=== PATIENT | female | born 1940 | race Caucasian/White ===

== ENCOUNTER → 2017-07-05 | Outpatient (CLI) | payer OTHER ==
[~2017-07-05] VITALS: Ht 157.5 cm; Wt 52.6 kg
[~2017-07-05] MED LIST: ALENDRONATE SOD70 MG PO; AMLODIPINE BESY10 MG PO; ATIVAN0.5 MG PO; CALCIUM 600 +1 EAC3 PO; CENTRUM SILVER1 EAC4 PO; ENALAPRIL-HCTZ1 EACH PO; PRAVASTATIN SOD80 MG PO; TRAZODONE HCL50 MG PO
--- NOTE | ~2017-07-05 | P ---
[facility] [place] [address] PROCEDURE REPORT Name: FLORENCIA HEATH Room #: REG [facility]#: [id number] Admission: 07/05/17 Attend Phys: Chase Travis MD Discharge: Date of : 40 Report #: [id number] THIS REPORT FOR: //name// CC: Chase Quiroz MD BRIEF HISTORY: The patient is a 77-year-old woman for average risk screening colonoscopy. PREOPERATIVE DIAGNOSIS: Average risk screening colonoscopy. POSTOPERATIVE DIAGNOSES: 1. Normal average risk screening colonoscopy. 2. Moderate sigmoid diverticulosis coli. 3. Small internal hemorrhoids. MEDICATIONS: Deep sedation with propofol per anesthesia. SPECIMEN: None. ESTIMATED BLOOD LOSS: None. PROCEDURE: Colonoscopy to cecum and terminal ileum. FINDINGS: Prior to propofol sedation, the procedure of colonoscopy was discussed with the patient as well as potential risks, benefits, and complications. She indicates she understands and desires to proceed. With the patient in left lateral decubitus position, digital examination was completed, which revealed no abnormalities. Subsequently, the [employer] video colonoscope was introduced into the rectum and advanced under direct vision to the cecum. Done with minimal difficulty. The cecum was identified by the ileocecal valve and the appendiceal orifice. I was able to visualize the distal segment of terminal ileum, which was inspected and noted to be unremarkable. At that point, scope was slowly withdrawn and careful circumferential views obtained including retroflexion of the scope in the ascending colon. As we withdrew the scope, the prep was noted to be excellent. Mucosa was within normal limits, normal vascular pattern, and normal light reflex. As we withdrew the scope, no mucosal abnormalities were seen. No neoplastic lesions were seen on this examination. In the sigmoid colon, there was noted to be moderate diverticular disease without endoscopic evidence of diverticulitis. The scope was withdrawn in the rectum. No mucosal abnormalities were seen. Upon retroflexion, very small hemorrhoids were seen. Scope was withdrawn. The patient tolerated the procedure well. CONDITION OF THE PATIENT UPON DISCHARGE: Following procedure, the patient [address] [address] PROCEDURE REPORT Name: FLORENCIA HEATH Room #: REG [facility].#: [id number] Admission: 07/05/17 Attend Phys: Chase Travis MD Discharge: Date of : 40 Report #: [id number] drowsy, arousable and conversant. She will be discharged to home when fully ambulatory. INSTRUCTIONS TO THE PATIENT AND FAMILY AT THE TIME OF DISCHARGE: No neoplastic lesions were seen today. I suggest high fiber diet. As far as screening for colorectal cancer, at age 77, there is likely to be a minimal benefit for routine screening colonoscopy in 10 years. However, if she develops any specific problems, colonoscopy could be completed at that time for those indications. Last colonoscopy was in 2002. Withdrawal time from the cecum was 11 minutes 49 seconds. By: 1034 1318 Chase Travis MD /lola
== END | disposition home or self-care (01) ==
LOC: GI 08:17
DX: Z12.11 Encounter for screening for malignant neoplasm of colon (principal); K57.30 Diverticulosis of large intestine without perforation or abscess without bleeding; K64.8 Other hemorrhoids; I10 Essential (primary) hypertension; E78.5 Hyperlipidemia, unspecified; Z98.890 Other specified postprocedural states; Z79.899 Other long term (current) drug therapy
CPT/HCPCS: 62110; 62900

== ENCOUNTER → 2017-10-17 | Outpatient (CLI) | payer OTHER | LOC: RAD 14:07 | DX: S92.411A Displaced fracture of proximal phalanx of right great toe, initial encounter for closed fracture (principal); X58.XXXA Exposure to other specified factors, initial encounter; Y93.89 Activity, other specified; Y92.89 Other specified places as the place of occurrence of the external cause; Y99.8 Other external cause status ==

== ENCOUNTER 2018-01-29 04:38 | Inpatient (IN) | payer OTHER ==
[~2018-01-29] VITALS: Ht 157.5 cm; Wt 48.1 kg
[2018-01-29] VITALS (7 sets, daily range): BP systolic 90–128; BP diastolic 45–66
--- NOTE | ~2018-01-29 | 2DMMODE ---
[facility] [address] [place] [address] 2 D/M-MODE ECHOCARDIOGRAM Name: FLORENCIA HEATH Room #: 349-I ADM IN .R.#: [id number] Admission: 01/29/18 Attend Phys: Jameel Quiroz, Discharge: Date of : 40 Date of Service: 01/29/18 1248 Report #: [id number] THIS REPORT FOR: //name// APPROVED REPORT Study performed: 01/29/2018 10:08:29 EXAM: Comprehensive 2D, Doppler, and color-flow Echocardiogram Patient Location: Echo lab Room #: 349 Status: routine BSA: 1.46 HR: 71 bpm BP: 90/50 mmHg Rhythm: NSR Other Information Study Quality: Good Risk Factors: Cardiac Risk Factors: HTN, Hyperlipidemia Indications Murmur Chest Pain Hypertension/HDD 2D Dimensions RVDd: 35.24 mm IVSd: 8.40 (7-11mm) LVOT Diam: 17.83 (18-24mm) LVDd: 38.93 mm PWd: 7.55 (7-11mm) LVDs: 26.15 (25-40mm) Aortic Root: 26.31 mm IVC: 25.00 mm Volumes Left Atrial Volume (Systole) Single Plane 4CH: 29.52 mL Single Plane 2CH: 41.34 mL LA ESV Index: 31.00 mL/m2 Aortic Valve AoV Peak Emerson.: 2.51 m/s AO Peak Gr.: 25.29 mmHg LVOT Max P.71 mmHg LVOT Max V: 1.56 m/s SYDNI Vmax: 1.55 cm2 [facility] [address] [place] [address] 2 D/M-MODE ECHOCARDIOGRAM Name: FLORENCIA HEATH Huy Room #: 349-I [facility] IN [facility]#: [id number] Admission: 01/29/18 Attend Phys: Jameel Quiroz, Discharge: Date of : 40 Date of Service: 01/29/18 1248 Report #: [id number] Mitral Valve E/A Ratio: 0.8 MV Decel. Time: 230.06 ms MV E Max Emerson.: 0.85 m/s MV A Emerson.: 1.02 m/s MV PHT: 66.72 ms IVRT: 96.89 ms Pulmonary Valve PV Peak Emerson.: 1.10 m/s PV Peak Gr.: 4.89 mmHg Pulmonary Vein P Vein S: 0.51 m/s P Vein A: 0.29 m/s P Vein D: 0.47 m/s P Vein A Dur.: 106.1 msec P Vein S/D Ratio: 1.09 Tricuspid Valve TR Peak Emerson.: 2.90 m/s TR Peak Gr.: 33.55 mmHg PA Pressure: 44.00 mmHg Left Ventricle The left ventricle is normal size. There is normal LV segmental wall motion. There is normal left ventricular wall thickness. The left ventricular systolic function is normal. The left ventricular ejection fraction is within the normal range. LVEF is 60-65%. Grade I - abnormal relaxation pattern. Right Ventricle The right ventricle is normal size. The right ventricular systolic function is normal. Atria The left atrium size is normal. The right atrium size is normal. Aortic Valve Aortic valve is mildly calcified, trileaflet. No aortic regurgitation is present. There is no aortic valvular stenosis. Mitral Valve Mild mitral annular calcification Mild mitral regurgitation. No evidence of mitral valve stenosis. Tricuspid Valve [facility] [address] [place] [address] 2 D/M-MODE ECHOCARDIOGRAM Name: FLORENCIA HEATH Room #: 349-I [facility] IN ..#: [id number] Admission: 01/29/18 Attend Phys: Jameel Quiroz, Discharge: Date of : 40 Date of Service: 01/29/18 1248 Report #: [id number] The tricuspid valve is normal in structure. There is mild tricuspid regurgitation. Estimated PAP is 40 mmHg. Pulmonic Valve The pulmonary valve is normal in structure. Trace pulmonic regurgitation. Great Vessels The aortic root is normal in size. IVC is dilated and collapses <50% with inspiration. Pericardium There is no pericardial effusion. <Conclusion> The left ventricular systolic function is normal. There is normal LV segmental wall motion. LVEF is 60-65%. Mild diastolic dysfunction Aortic valve is mildly calcified, trileaflet. No aortic valvular stenosis or insufficiency. Mild mitral annular calcification. Mild mitral regurgitation. There is mild tricuspid regurgitation. Estimated pulmonary artery pressure of 40 mmHg. There is no pericardial effusion. <ELECTRONICALLY SIGNED> By: Chris Jamison MD, FACC 01/29/18 1248 1248 1248 Chris Jamison MD, FACC /INF
--- NOTE | ~2018-01-29 | EKG ---
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[place] : 1940 Requested By: Lyudmila Willoughby Order Number: [id number] MD: Chris Jamison Measurements Intervals [place] Rate: 81 P: 62 KS: 150 QRS: 47 QRSD: 105 T: 19 QT: 387 QTc: 450 Interpretive Statements Sinus rhythm Low voltage, precordial leads Probable anteroseptal infarct, old No previous ECG available for comparison Electronically Signed On 01-29-2018 7:46:57 [employer] INSPECT[employer] by Chris Jamison [email or web address] <ELECTRONICALLY SIGNED> By: Chris Jamison MD, [facility] 01/29/18 0746 D: 11443 3 Chris Jamison MD, FAC /EPI
--- NOTE | ~2018-01-29 | D ---
[facility] [place] [address] DISCHARGE SUMMARY Name: FLORENCIA HEATH Room #: 349-I [facility] IN ..#: [id number] Admission: 01/29/18 Attend Phys: Jameel Quiroz MD Discharge: 01/30/18 Date of : 40 Report #: [id number] THIS REPORT FOR: //name// CC: Jameel Quiroz DATE OF SERVICE: 01/30/2018 SUMMARY OF HISTORY AND PHYSICAL: The patient presented to the emergency room with severe angina pectoris. The pain had a few atypical features, but was relieved with nitroglycerin that was given to her by the paramedics. Admission was indicated. SUMMARY OF HOSPITAL COURSE: She was seen by the cardiology service. Medications were adjusted. She underwent a nuclear stress test that was negative. She reports having shortness of breath, chest discomfort, "all the side effects they warned me about and it was terrible and I never want to have that test again!" She was found to be severely malnourished by the dietitians and recommended snacks and supplements be taken. This was based on her weight loss, although they did say that her current BMI was at the appropriate level. LAB: K 3.2 replaced to 4.2, creatinine 0.7, albumin 2.8 after rehydration, troponin < 0.06, WBC 7.5, Hb 12.9. DISCHARGE DIAGNOSES: 1. Severe chest pain, was felt to be gastrointestinal related after her evaluation. 2. She had severe malnourishment based on her weight loss - since the loss of her . 3. Gastroesophageal reflux disease. 4. Severe depression following the loss of her . 5. Hypertension. 6. Hyperlipidemia. 7. Diverticulosis from an otherwise negative colonoscopy in the spring of this year. 8. Insomnia. 9. Osteoporosis. 10. Depression and grief. 11 Hypokalemia. 11. Bilateral mild carotid plaque. 13. Left mild hydronephrosis as an incidental finding on otherwise normal abdominal ultrasound. [facility] [address] [place] [address] DISCHARGE SUMMARY Name: FLORENCIA HEATH Room #: 349-I [facility] IN [facility].#: [id number] Admission: 01/29/18 Attend Phys: Jameel Quiroz MD Discharge: 01/30/18 Date of : 40 Report #: [id number] PLAN: She is to resume her usual medications. Proton pump inhibitor was added. She is to see me in my office in 2 weeks for medication and symptom recheck. Routine CT abdomen and pelvis to evaluate the left sided hydronephhrosis. <ELECTRONICALLY SIGNED> By: Jameel Quiroz MD 03/08/18 1023 2309 [id number] Jameel Quiroz MD /nt
--- NOTE | ~2018-01-29 | H ---
[facility] [place] [address] HISTORY AND PHYSICAL Name: FLORENCIA HEATH Room #: 349-I [facility] IN ..#: [id number] Admission: 01/29/18 Attend Phys: Jameel Quiroz MD Discharge: 01/30/18 Date of : 40 Report #: [id number] THIS REPORT FOR: //name// CC: [facility] Jameel Quiroz DATE OF SERVICE: 01/29/2018 CHIEF COMPLAINT: Severe angina pectoris. HISTORY OF PRESENT ILLNESS: The patient's in April of this year and since that time, she has lost 20 pounds. "I have not taken a heartburn pill since Rhiannon ." She fixed herself some soup using ingredients and recipe she has enjoyed for many years last night at about 6. She had a little bit of chest discomfort, but it resolved and then she went to bed about 10. She was awakened this morning by severe chest pain, a 10/10, that was substernal in location and boring directly through to her back. If she took a deep breath, it was more intense, but did not move nor change in character. As it persisted, she called the paramedics, who administered nitroglycerin tablets when they arrived. The chest pain responded dramatically to nitroglycerin, being cut in half by the time she arrived at the Emergency Room, and being reduced by further nitro in the Emergency Room. In the ambulance, the paramedics gave her 2 nitroglycerin tablets, aspirin and Zofran. She did take a Prilosec before calling the paramedics without benefit. She told the Emergency Room staff that she had frequent burping as well. Cardiac risk factors include hypertension and hyperlipidemia. She has never been a smoker, does not have diabetes, but there is heart disease in one first-degree relative, her mother. PAST MEDICAL HISTORY: Significant for tremendous grief and reactive depression since losing her in April of this year after years of progressive inexorable course of his pulmonary fibrosis. She has hypertension, hyperlipidemia. She has had inner ear symptoms and recent colonoscopy was remarkable only for diverticulosis. She has insomnia. She has loneliness. she recently started taking a potassium supplement for low potassium. CURRENT MEDICATIONS: Multiple vitamin, calcium with vitamin D, pravastatin 40 mg or 80 mg daily, amlodipine 10 mg daily, enalapril 10 mg with 25 mg of hydrochlorothiazide daily, vitamin D 2000 units daily, alendronate 70 mg once a week, lorazepam 0.5 mg 1/2 tablet at bedtime, trazodone 50 mg 1-1/2 tablets at bedtime, citalopram 10 mg 1 daily and the potassium supplement. ADDITIONAL MEDICAL PROBLEM: Osteoporosis, depression. [address] [address] HISTORY AND PHYSICAL Name: FLORENCIA HEATH Huy Room #: 349-I [facility] IN M.R.#: [id number] Admission: 01/29/18 Attend Phys: Jameel Quiroz MD Discharge: 01/30/18 Date of : 40 Report #: [id number] ALLERGIES: None known. SOCIAL HISTORY: She has never been a smoker, does not drink alcohol, lives alone in her own home after her in April of this year. She recently got a dog who has been helpful in adjusting to being a . REVIEW OF SYSTEMS: HEENT: Negative. She denies shortness of breath, cough. She denies exertional dyspnea-she walked more than a mile yesterday in the morning with friends of hers, as is her habit. She does not have abdominal pain, vomiting, constipation or diarrhea. She does not have any symptoms. She denies limb or joint discomfort. She has no neurological symptoms. OBJECTIVE: VITAL SIGNS: Her blood pressure is currently low, presumably from all the nitroglycerin she has received, at 94/51; respirations were 21 earlier, heart rate is 80 and regular. She is afebrile. HEENT: Normal, the oropharynx is normal. NECK: Negative for masses, but does have bilateral bruits. HEART: There is a strong systolic ejection murmur across the upper chest, the other heart tones are normal. Palpation of the sternum and the chest wall does not reproduce her symptoms. LUNGS: Clear through all lung orosco. ABDOMEN: Soft, nontender, without hepatosplenomegaly or masses. EXTREMITIES: There is no pedal edema, clubbing or cyanosis in the extremities. NEUROLOGIC: Screening neurological examination is intact. LABORATORY DATA: Her 12-lead EKG is reported as being normal. Her random glucose is high at 145 and her potassium is low at 3.2. Her initial troponin is negative. WBCs 7.5 thousand, hemoglobin is 12.9, hematocrit is 39.0. There is a mild left shift of 67% segmented neutrophils. Chest x-ray shows scattered interstitial prominence with mild patchy bibasilar atelectasis and is otherwise unremarkable. ASSESSMENT: 1. Severe chest pain-angina pectoris-this is her first episode of chest pain this severe. 2. Past history of minimal reflux symptoms for which she has taken an occasional Prilosec tablet. 3. Controlled hypertension. 4. Hypokalemia. 5. Grade 3/6 systolic ejection murmur. 6. Bilateral carotid bruits. [address] [address] HISTORY AND PHYSICAL Name: FLORENCIA HEATH Room #: 349-I [facility] IN [facility]#: [id number] Admission: 01/29/18 Attend Phys: Jameel Quiroz MD Discharge: 01/30/18 Date of : 40 Report #: [id number] 7. Hyperlipidemia. 8. Hypertension. 9. Osteoporosis, on weekly alendronate. 10. Depression and anxiety. 11. Insomnia. PLAN: The patient is admitted because of her high risk of having coronary artery disease given her age of 78, family history of heart disease in her mother, physical findings suggestive of vascular disease with her carotid artery bruits, and history of hyperlipidemia. She will be seen in cardiovascular medicine consultation. An echocardiogram and carotid Dopplers will be done as well. She requests a full code blue. <ELECTRONICALLY SIGNED> By: Jameel Quiroz MD 03/07/18 2311 0828 1006 Jameel Quiroz MD /nt
[2018-01-29 05:03] LABS: BASOPHILS 0.6 % (0.0-2.0); EOSINOPHILS 1.2 % (0.0-3.0); HEMOGLOBIN 12.9 gm/dL (12.0-15.0); LYMPHOCYTES 25.4 % (24.0-44.0); MCH 27.1 pg (26.0-34.0); MCV 82.2 fL (80.0-100.0); MONOCYTES 5.8 % (1.0-8.0); PLATELET COUNT 118 thou/uL (150-400); RBC 4.74 mil/uL (4.20-5.00); WBC 7.5 thou/uL (4.0-11.0)
[2018-01-29 05:09] LABS: ANION GAP 8 mmol/L (7-16); BUN 13 mg/dL (7-18); CALCIUM 9.1 mg/dL (8.5-10.1); CHLORIDE 103 mmol/L (98-107); CO2 29 mmol/L (21-32); CREATININE 0.7 mg/dL (0.6-1.0); GLUCOSE 145 mg/dL (74-106); POTASSIUM 3.2 mmol/L (3.5-5.1); SODIUM 140 mmol/L (136-145)
[2018-01-29 05:18] LABS: TROPONIN-I <0.06 ng/mL (<0.06)
[2018-01-29 11:25] LABS: ALBUMIN 3.3 g/dL (3.4-5.0); DIRECT BILIRUBIN < 0.1 mg/dL (<0.1-0.3); SGOT 16 U/L (15-37); SGPT 22 U/L (30-65); TOTAL BILIRUBIN 0.2 mg/dL (<0.1-1.0); TOTAL PROTEIN 6.7 g/dL (6.4-8.2)
[2018-01-30 03:45] VITALS: BP 121/68
[2018-01-30 06:16] LABS: ALBUMIN 2.8 g/dL (3.4-5.0); CALCIUM 8.4 mg/dL (8.5-10.1); CREATININE 0.7 mg/dL (0.6-1.0); TOTAL BILIRUBIN 0.3 mg/dL (<0.1-1.0); TOTAL PROTEIN 6.4 g/dL (6.4-8.2)
[2018-01-30 06:20] LABS: POTASSIUM 4.2 mmol/L (3.5-5.1)
[2018-01-30 07:22] VITALS: BP 112/60
[2018-01-30 15:53] VITALS: BP 122/59
[2018-01-30] MEDS ORDERED: PROTONIX40 M1 PO (18:20)
[2018-01-30 18:35] VITALS: BP 122/59
[2018-01-30 18:38] VITALS: BP 122/59
== END 2018-01-30 19:20 | disposition home or self-care (01) | DRG 391 ==
LOC: ER 04:38 → 3W 05:56 → EROBS 05:56 → 3W 07:26
PROVIDERS: Emergency Medicine; Internal Medicine; Internal Medicine Cardiovascular Disease
DX: K21.9 Gastro-esophageal reflux disease without esophagitis (principal); E43 Unspecified severe protein-calorie malnutrition; N13.30 Unspecified hydronephrosis; R07.89 Other chest pain; K22.4 Dyskinesia of esophagus; I10 Essential (primary) hypertension; E78.5 Hyperlipidemia, unspecified; Z82.49 Family history of ischemic heart disease and other diseases of the circulatory system; R09.89 Other specified symptoms and signs involving the circulatory and respiratory systems; E87.6 Hypokalemia; R73.9 Hyperglycemia, unspecified; F41.9 Anxiety disorder, unspecified; F32.9 Major depressive disorder, single episode, unspecified; I08.1 Rheumatic disorders of both mitral and tricuspid valves; Z60.2 Problems related to living alone; G47.00 Insomnia, unspecified; K57.90 Diverticulosis of intestine, part unspecified, without perforation or abscess without bleeding; M81.0 Age-related osteoporosis without current pathological fracture; Z79.899 Other long term (current) drug therapy
CPT/HCPCS: 10879

== ENCOUNTER → 2018-09-04 | Outpatient (CLI) | payer OTHER ==
[~2018-09-04] MED LIST changes: +PROTONIX40 M1 PO
== END ==
LOC: CAT 11:19
DX: Z13.6 Encounter for screening for cardiovascular disorders (principal); E78.00 Pure hypercholesterolemia, unspecified; Z82.49 Family history of ischemic heart disease and other diseases of the circulatory system

== ENCOUNTER → 2018-12-24 | Outpatient (CLI) | payer OTHER | LOC: ULTRA 08:35 | DX: N28.1 Cyst of kidney, acquired (principal); N13.30 Unspecified hydronephrosis; N28.9 Disorder of kidney and ureter, unspecified ==

== ENCOUNTER → 2019-01-02 | Outpatient (CLI) | payer OTHER | LOC: CAT 11:03 | DX: N28.1 Cyst of kidney, acquired (principal); N28.89 Other specified disorders of kidney and ureter; K76.89 Other specified diseases of liver; J43.9 Emphysema, unspecified; N13.30 Unspecified hydronephrosis; R91.8 Other nonspecific abnormal finding of lung field ==